=== PATIENT | female | born 1940 | race Caucasian/White ===

== ENCOUNTER → 2016-12-02 | Outpatient (CLI) | payer MEDICARE ==
--- NOTE | 2016-12-03 09:58 | MM ---
Reason for exam: screening (asymptomatic). Last mammogram was performed 1 year ago. History: Patient is postmenopausal. Benign MG stereo VAD BX LT of the left breast, February 04, 2014. Benign excisional biopsy of the left breast. Benign excisional biopsy of the right breast. Took estrogen for 5 years beginning at age 57. Took progesterone for 5 years beginning at age 57. Physical Findings: A clinical breast exam by your physician is recommended on an annual basis and results should be correlated with mammographic findings. MG 3D Screening Mammo W/Cad Bilateral CC and MLO view(s) were taken. Prior study comparison: November 20, 2015, bilateral MG screening mammo w CAD. November 13, 2014, left breast MG diagnostic mammo LT w CAD. There are scattered fibroglandular densities. Previous mammotome biopsy in the left breast. No significant changes when compared with prior studies. ASSESSMENT: Benign, BI-RAD 2 RECOMMENDATION: Routine screening mammogram of both breasts in 1 year.
== END | disposition home or self-care (01) ==
LOC: RADMAMWWP 10:00
PROVIDERS: ATTEND Obstetrics & Gynecology
DX: Z12.31 Encounter for screening mammogram for malignant neoplasm of breast (principal)
CPT/HCPCS: 77063; G0202

== ENCOUNTER → 2017-12-13 | Outpatient (CLI) | payer MEDICARE ==
--- NOTE | 2017-12-14 11:02 | MM ---
Reason for exam: screening (asymptomatic). Last mammogram was performed 1 year ago. History: Patient is postmenopausal. Benign MG stereo VAD BX LT of the left breast, February 04, 2014. Benign excisional biopsy of the left breast. Benign excisional biopsy of the right breast. Took estrogen for 5 years beginning at age 57. Took progesterone for 5 years beginning at age 57. Physical Findings: A clinical breast exam by your physician is recommended on an annual basis and results should be correlated with mammographic findings. MG 3D Screening Mammo W/Cad Bilateral CC and MLO view(s) were taken. Prior study comparison: December 02, 2016, bilateral MG 3d screening mammo w/cad. November 20, 2015, bilateral MG screening mammo w CAD. There are scattered fibroglandular densities. Finding: There are typically benign vascular, round calcifications in both breasts. Previous mammotome biopsy in the left breast. There is no discrete abnormality. ASSESSMENT: Benign, BI-RAD 2 RECOMMENDATION: Routine screening mammogram of both breasts in 1 year.
== END | disposition home or self-care (01) ==
LOC: RADMAMWWP 10:02
PROVIDERS: ATTEND Obstetrics & Gynecology
DX: Z12.31 Encounter for screening mammogram for malignant neoplasm of breast (principal); Z13.820 Encounter for screening for osteoporosis
CPT/HCPCS: 77063; 77067

== ENCOUNTER → 2017-12-29 | Outpatient (CLI) | payer MEDICARE ==
--- NOTE | 2017-12-29 11:09 | BD ---
EXAMINATION TYPE: Axial Bone Density DATE OF EXAM: 12/29/2017 COMPARISON: 2012 CLINICAL HISTORY: screening Height: 5'5 Weight: 169 FRAX RISK QUESTIONS: Alcohol (3 or more units per day): y Family History (Parent hip fracture): y Secondary Osteoporosis: RISK FACTORS HISTORY OF: History of Wrist Fracture: yes unsure which wrist When: unsure Postmenopausal woman: MEDICATIONS: Additional Medications: blood pressure, Additional History: skin cancer 2013 EXAM MEASUREMENTS: Bone mineral densitometry was performed using the [employer] System. Bone mineral density as measured about the Lumbar spine is: ----- L1-L4(G/cm2): 1.300 T Score Values are as follows: ----- L2: -0.6 ----- L3: 1.4 ----- L4: 3.0 ----- L1-L4: 1.0 Bone mineral density has: Decreased -0.4% since study of: 01/25/2003 Bone mineral density about the R hip (g/cm2): 0.950 Bone mineral density about the L hip (g/cm2): 0.950 T Score values are as follows: -----R Neck: -0.6 -----L Neck: -0.6 -----R Total: 0.3 -----L Total: 0.2 Bone mineral density has: Decreased -5.0% since study of: 01/25/2003 IMPRESSION: Normal (Values between +1 and -1 indicate normal bone mass). Consider repeating this study in 5 year s or sooner if there is some new clinical indication. NOTE: T-SCORE=SD OF THE YOUNG ADULT MEAN.
== END | disposition home or self-care (01) ==
LOC: RADBDWWP 09:13
PROVIDERS: ATTEND Obstetrics & Gynecology
DX: Z13.820 Encounter for screening for osteoporosis (principal)
CPT/HCPCS: 77080

== ENCOUNTER → 2018-12-21 | Outpatient (CLI) | payer MEDICARE ==
--- NOTE | 2018-12-26 10:29 | MM ---
Reason for exam: screening (asymptomatic). Last mammogram was performed 1 year ago. History: Patient is postmenopausal. Benign MG stereo VAD BX LT of the left breast, February 04, 2014. Benign excisional biopsy of the left breast. Benign excisional biopsy of the right breast. Took estrogen for 5 years beginning at age 57. Took progesterone for 5 years beginning at age 57. Physical Findings: A clinical breast exam by your physician is recommended on an annual basis and results should be correlated with mammographic findings. MG 3D Screening Mammo W/Cad Bilateral CC and MLO view(s) were taken. Prior study comparison: December 13, 2017, bilateral MG 3d screening mammo w/cad. December 02, 2016, bilateral MG 3d screening mammo w/cad. There are scattered fibroglandular densities. Previous mammotome biopsy in the left breast. No significant changes when compared with prior studies. ASSESSMENT: Benign, BI-RAD 2 RECOMMENDATION: Routine screening mammogram of both breasts in 1 year.
== END | disposition home or self-care (01) ==
LOC: RADMAMWWP 10:17
PROVIDERS: ATTEND Obstetrics & Gynecology
DX: Z12.31 Encounter for screening mammogram for malignant neoplasm of breast (principal)
CPT/HCPCS: 77063; 77067

== ENCOUNTER → 2019-04-24 | Outpatient (CLI) | payer MEDICARE | END | disposition home or self-care (01) | LOC: CPPFTMAIN 08:29 | PROVIDERS: ATTEND Nurse Practitioner Family | DX: R06.02 Shortness of breath (principal) | CPT/HCPCS: 94060; 94726; 94729 ==

== ENCOUNTER → 2019-05-29 | Outpatient (CLI) | payer MEDICARE ==
--- NOTE | 2019-05-30 11:50 | ECHOF ---
Referral Reason:R06.09 Other forms of dyspnea MEASUREMENTS -------- HEIGHT: 165.1 cm WEIGHT: 80.7 kg BP: RVIDd: 3.5 cm (< 3.3) IVSd: 1.1 cm (0.6 - 1.1) LVIDd: 4.2 cm (3.9 - 5.3) LVPWd: 1.4 cm (0.6 - 1.1) IVSs: 1.7 cm LVIDs: 2.8 cm LVPWs: 1.7 cm LAESV Index (A-L): 22.57 ml/m Ao Diam: 3.0 cm (2.0 - 3.7) AV Cusp: 2.5 cm (1.5 - 2.6) LA Diam: 3.9 cm (2.7 - 3.8) MV EXCURSION: 14.919 mm (> 18.000) MV EF SLOPE: 81 mm/s (70 - 150) EPSS: 0.8 cm MV E Cristo: 0.74 m/s MV DecT: 261 ms MV A Cristo: 0.90 m/s MV E/A Ratio: 0.83 RAP: 5.00 mmHg RVSP: 28.63 mmHg FINDINGS -------- Sinus rhythm. This was a technically adequate study. The left ventricular size is normal. There is mild concentric left ventricular hypertrophy. Overa ll left ventricular systolic function is normal with, an EF between 60 - 65 %. The diastolic fillin g pattern is normal for the age of the patient 11.21. The right ventricle is mildly enlarged. Normal LA size by volume 22+/-6 ml/m2. The right atrial size is normal. Interatrial and interventricular septum intact. The aortic valve is trileaflet and appears structurally normal. There is no evidence of aortic regu rgitation. There is no evidence of aortic stenosis. Mild mitral regurgitation is present. Mild tricuspid regurgitation present. There is no evidence of pulmonary hypertension. The right v entricular systolic pressure, as measured by Doppler, is 28.63mmHg. There is no pulmonic regurgitation present. The aortic root size is normal. Normal inferior vena cava with normal inspiratory collapse consistent with estimated right atrial pre ssure of 5 mmHg. Echo free space represents a pericardial fat pad. There is no pericardial effusion. CONCLUSIONS -------- 1. Sinus rhythm. 2. This was a technically adequate study. 3. The left ventricular size is normal. 4. There is mild concentric left ventricular hypertrophy. 5. Overall left ventricular systolic function is normal with, an EF between 60 - 65 %. 6. The diastolic filling pattern is normal for the age of the patient 11.21 7. The right ventricle is mildly enlarged. 8. Normal LA size by volume 22+/-6 ml/m2. 9. The right atrial size is normal. 10. Interatrial and interventricular septum intact. 11. The aortic valve is trileaflet and appears structurally normal. 12. There is no evidence of aortic regurgitation. 13. There is no evidence of aortic stenosis. 14. Mild mitral regurgitation is present. 15. Mild tricuspid regurgitation present. 16. There is no evidence of pulmonary hypertension. 17. The right ventricular systolic pressure, as measured by Doppler, is 28.63mmHg. 18. There is no pulmonic regurgitation present. 19. The aortic root size is normal. 20. Normal inferior vena cava with normal inspiratory collapse consistent with estimated right atrial pressure of 5 mmHg. 21. Echo free space represents a pericardial fat pad. 22. There is no pericardial effusion. CLINICAL PHLEBOTOMIST: Breana Fuentes RDCS
== END | disposition home or self-care (01) ==
LOC: RADECHMAIN 14:52
PROVIDERS: ATTEND Family Medicine
DX: I08.1 Rheumatic disorders of both mitral and tricuspid valves (principal)
CPT/HCPCS: 93306

== ENCOUNTER → 2019-07-11 | Outpatient (CLI) | payer MEDICARE ==
[~2019-07-11] MED LIST: REGADENOSON 0.4 MG/5 ML SYRINGE IV ONE
--- NOTE | 2019-07-11 11:43 | NM ---
EXAMINATION TYPE: NM stress lexiscan cardiolite DATE OF EXAM: 07/11/2019 COMPARISON: NONE HISTORY: Precordial chest pain and abnormal EKG TECHNIQUE: After the intravenous administration of 9.77 mCi Tc 99m Sestamibi - Cardiolite resting SP ECT images acquired 45 minutes post injection. The patient received 0.4mg Lexiscan, 25.2 mCi Tc 99m Sestamibi - Stress images obtained [address] injection FINDINGS: Review of stress and rest SPECT images demonstrates no distinct perfusion abnormality. Gated analysi s shows normal wall motion with an estimated left ventricular ejection fraction of 71 %. IMPRESSION: No scintigraphic evidence for reversible ischemia.
--- NOTE | 2019-07-11 12:37 | EST ---
EXERCISE STRESS DATE OF SERVICE: 07/11/2019 AGE: 79 SEX: Female HT: 65" WT: 177 pounds PROTOCOL: Lexiscan Cardiolite STAGE: DURATION OF EXERCISE: HEART RATE REST: 82 BLOOD PRESSURE REST: 130/73 MAXIMUM HEART RATE ACHIEVED: 100 MAXIMUM BLOOD PRESSURE: 131/67 85% MPHR: 100% MPHR: METS: INDICATIONS: Chest pain. CLINICAL INFORMATION: STRESS DATA: Heart rate 82, pressure is 130/73 mmHg. Baseline EKG showed sinus rhythm. The patient was given 0.4 mg of Lexiscan over 15 seconds per protocol. Max heart rate was 100 beats per minute. Maximum pressure was 131/67 mmHg. Clinically, the patient did not have any symptoms of chest pain or chest discomfort and the EKG did not show any significant ST or T-wave abnormalities concerning for ischemia. CONCLUSION: 1. Nondiagnostic electrocardiogram stress testing in response to Lexiscan. 2. Please follow up on the Cardiolite portion on separate report from Radiology Department. MMODL / IJN: [id number] /
== END | disposition home or self-care (01) ==
LOC: RADNMMAIN 08:35
PROVIDERS: ATTEND Family Medicine
DX: R06.09 Other forms of dyspnea (principal)
CPT/HCPCS: 93017; 78452; A9500; J2785

== ENCOUNTER → 2019-12-18 | Outpatient (CLI) | payer MEDICARE | END | disposition home or self-care (01) | LOC: LABWHC1 11:15 | PROVIDERS: ATTEND Internal Medicine Gastroenterology | DX: Z11.59 Encounter for screening for other viral diseases (principal) | CPT/HCPCS: 87635 ==

== ENCOUNTER 2019-12-21 09:35 | Day surgery (SDC) | payer MEDICARE ==
[2019-12-20 08:44] VITALS: BMI 28.6
[~2019-12-21 09:35] MED LIST changes: +LACTATED RINGERS 1,000 ML IV SCH; +LIDOCAINE 1% (10MG/ML) FOR IV START INTRADERMA PRN; -REGADENOSON 0.4 MG/5 ML SYRINGE IV ONE
[2019-12-21] MEDS ORDERED: LACTATED RINGERS 1,000 ML IV ONE (09:53)
[2019-12-21 10:11] VITALS: RESP 18; TEMP 97.8
[2019-12-21] MEDS ORDERED: PROPOFOL 10 MG/ML 20 ML VIAL IV ONE (11:35)
--- NOTE | 2019-12-21 11:57 | P.PCN ---
Date of Procedure: 12/21/19 Procedure(s) Performed: BRIEF HISTORY: Patient is a 79-year-old pleasant white female with long-standing history of ulcerative colitis diagnosed in 1989 he scheduled for a surveillance colonoscopy today . Her last colonoscopy was 4 years ago. She remains in clinical remission. PROCEDURE PERFORMED: Colonoscopy With random biopsies PREOPERATIVE DIAGNOSIS long-standing history of ulcerative colitis. IV sedation per Anesthesia. PROCEDURE: After informed consent was obtained, the patient, was brought into the endoscopy unit. IV sedation was administered by Anesthesia under continuous monitoring. Digital rectal examination was normal. Initially the Olympus CF-160 flexible video colonoscope was then inserted in the rectum, gradually advanced into the cecum without any difficulty. Careful examination was performed as the scope was gradually being withdrawn. Ileocecal valve and the appendiceal orifice were visualized and appeared normal. Prep was excellent. Mucosa of the cecum, ascending colon, transverse colon, descending colon, sigmoid colon, and rectum appeared normal. Retroflexion was performed in the rectum and no lesions were seen. Random biopsies were done at every 10 cm to rule out dysplasia. Scattered left-sided diverticulosis seen. The patient tolerated the procedure well. IMPRESSION: Normal-appearing colon from rectum to cecum with no evidence of active colitis or colorectal neoplasia. Scattered left-sided diverticulosis. RECOMMENDATIONS: Findings of this examination were discussed with the patient as well as a family. She was advised to follow with the biopsy results. If the biopsy does not show any evidence of residual can have a repeat colonoscopy in 2-3 years.
[2019-12-21 12:15] VITALS: BP 127/58; PULSE 72
== END 2019-12-21 12:59 | disposition home or self-care (01) ==
LOC: ORWHC2ENDO 09:35
PROVIDERS: ATTEND Internal Medicine Gastroenterology
DX: Z12.11 Encounter for screening for malignant neoplasm of colon (principal); K52.9 Noninfective gastroenteritis and colitis, unspecified; K57.30 Diverticulosis of large intestine without perforation or abscess without bleeding; I10 Essential (primary) hypertension; Z88.0 Allergy status to penicillin; Z88.2 Allergy status to sulfonamides; Z87.19 Personal history of other diseases of the digestive system; Z79.82 Long term (current) use of aspirin; Z79.899 Other long term (current) drug therapy
CPT/HCPCS: 88305; 45380; J2704

== ENCOUNTER → 2020-02-05 | Outpatient (CLI) | payer MEDICARE ==
--- NOTE | 2020-02-05 11:17 | XR ---
EXAMINATION TYPE: XR chest 2V DATE OF EXAM: 02/05/2020 COMPARISON: 07/20/2012 HISTORY: 79-year-old female cough and shortness of breath TECHNIQUE: Frontal and lateral views FINDINGS: Heart normal size. Aorta and pulmonary vasculature within normal limits. Some mild patchy density at the cardiac apex/left base. Otherwise, no consolidation or pleural effusion. IMPRESSION: Some mild patchy density at the left base probable atelectasis. Correlate with patient's symptoms to exclude an early infiltrate. Follow-up can be considered.
[2020-02-05 11:36] LABS: HCT 38.8 % (34.0-46.0); HGB 12.7 gm/dL (11.4-16.0); MCH 31.4 pg (25.0-35.0); MCHC 32.7 g/dL (31.0-37.0); Mean Platelet Volume 8.7; Platelet Count 219 k/uL (150-450); RBC 4.05 m/uL (3.80-5.40); WBC 7.9 k/uL (3.8-10.6)
[2020-02-05 11:51] LABS: ALT 11 U/L (4-34); AST 20 U/L (14-36); African American GFR (CKD) >90 (>60 ml/min/1.73 sqM); Albumin 4.4 g/dL (3.5-5.0); Albumin/Globulin Ratio 1.7; Alkaline Phosphatase 72 U/L (38-126); Anion Gap 6 mmol/L; Blood Urea Nitrogen 15 mg/dL (7-17); C Reactive Protein 8.1 mg/L (<10.0); Calcium 11.2 mg/dL (8.4-10.2); Carbon Dioxide 29 mmol/L (22-30); Chloride 102 mmol/L (98-107); Globulin 2.6 g/dL; Glucose 109 mg/dL (74-99); LDH 355 U/L (313-618); Non-African American GFR(CKD) 83 (>60 ml/min/1.73 sqM); Potassium 3.7 mmol/L (3.5-5.1); Sodium 137 mmol/L (137-145)
[2020-02-05 20:15] LABS: Ferritin 139.9 ng/mL (10.0-291.0)
== END | disposition home or self-care (01) ==
LOC: LABWHC1 10:39
PROVIDERS: ATTEND Family Medicine
DX: J98.4 Other disorders of lung (principal); R06.02 Shortness of breath; R05 Cough
CPT/HCPCS: 85379; 80053; 82728; 83615; 85027; 86140; 71046; 36415; U0003

== ENCOUNTER → 2020-03-14 | Outpatient (CLI) | payer MEDICARE ==
--- NOTE | 2020-03-14 11:36 | MM ---
Reason for exam: additional evaluation requested from abnormal screening. Last mammogram was performed 1 month ago. History: Patient is postmenopausal and history of other cancer. Benign MG stereo VAD BX LT of the left breast, February 04, 2014. Benign excisional biopsy of the left breast. Benign excisional biopsy of the right breast. Took estrogen for 5 years beginning at age 57. Took progesterone for 5 years beginning at age 57. Physical Findings: Nurse did not find any significant physical abnormalities on exam. MG 3D Work Up W/Cad LT Spot compression CC, spot compression MLO, and LM view(s) were taken of the left breast. Prior study comparison: February 26, 2020, bilateral MG 3d screening mammo w/cad. December 21, 2018, bilateral MG 3d screening mammo w/cad. There are scattered fibroglandular densities. On additional views, the upper outer quadrant vague focal asymmetry becomes less defined. The appearance may be similar to 2016. 6 month follow up recommended. These results were verbally communicated with the patient and result sheet given to the patient on 03/14/20. ASSESSMENT: Probably benign, BI-RAD 3 RECOMMENDATION: Follow-up diagnostic mammogram of the left breast in 6 months.
== END | disposition home or self-care (01) ==
LOC: RADMAMWWP 10:15
PROVIDERS: ATTEND Obstetrics & Gynecology
DX: R92.8 Other abnormal and inconclusive findings on diagnostic imaging of breast (principal)
CPT/HCPCS: 77065; G0279; 77061

== ENCOUNTER → 2020-09-18 | Outpatient (CLI) | payer MEDICARE ==
--- NOTE | 2020-09-19 09:31 | MM ---
Reason for exam: follow-up at short interval from prior study. Last mammogram was performed 6 months ago. History: Patient is postmenopausal and history of other cancer. Benign MG stereo VAD BX LT of the left breast, February 04, 2014. Benign excisional biopsy of the left breast. Benign excisional biopsy of the right breast. Took estrogen for 5 years beginning at age 57. Took progesterone for 5 years beginning at age 57. Physical Findings: Nurse did not find any significant physical abnormalities on exam. MG 3D Diag Mammo W/Cad LT CC and MLO view(s) were taken of the left breast. Prior study comparison: March 14, 2020, left breast MG 3d work up w/cad LT. February 26, 2020, bilateral MG 3d screening mammo w/cad. There are scattered fibroglandular densities. Previous mammotome biopsy in the left breast. Superior left MLO asymmetric density stable for 6 months. Additional follow up recommended. These results were verbally communicated with the patient and result sheet given to the patient on 09/18/20. ASSESSMENT: Probably benign, BI-RAD 3 RECOMMENDATION: Follow-up diagnostic mammogram of both breasts in 5 months. Back on schedule for January 2021.
== END | disposition home or self-care (01) ==
LOC: RADMAMWWP 14:18
PROVIDERS: ATTEND Family Medicine
DX: R92.8 Other abnormal and inconclusive findings on diagnostic imaging of breast (principal)
CPT/HCPCS: 77065; G0279; 77061

== ENCOUNTER → 2021-03-10 | Outpatient (CLI) | payer MEDICARE ==
--- NOTE | 2021-03-11 10:32 | MM ---
Reason for exam: additional evaluation requested from prior study. Last mammogram was performed 6 months ago. History: Patient is postmenopausal and history of other cancer. Benign MG stereo VAD BX LT of the left breast, February 04, 2014. Benign excisional biopsy of the left breast. Benign excisional biopsy of the right breast. Took estrogen for 5 years beginning at age 57. Took progesterone for 5 years beginning at age 57. Physical Findings: Nurse did not find any significant physical abnormalities on exam. MG 3D Diag Mammo W/Cad ANNALISA Bilateral CC and MLO view(s) were taken. XCCL view(s) were taken of the left breast. Prior study comparison: September 18, 2020, left breast MG 3d diag mammo w/cad LT. March 14, 2020, left breast MG 3d work up w/cad LT. There are scattered fibroglandular densities. Benign appearing bilateral calcifications. Previous mammotome biopsy in the left breast. No significant new findings when compared with previous films. These results were verbally communicated with the patient and result sheet given to the patient on 03/10/21. ASSESSMENT: Benign, BI-RAD 2 RECOMMENDATION: Routine screening mammogram of both breasts in 1 year.
== END | disposition home or self-care (01) ==
LOC: RADMAMWWP 10:53
PROVIDERS: ATTEND Family Medicine
DX: R92.1 Mammographic calcification found on diagnostic imaging of breast (principal); Z78.0 Asymptomatic menopausal state; Z85.9 Personal history of malignant neoplasm, unspecified; Z79.818 Long term (current) use of other agents affecting estrogen receptors and estrogen levels
CPT/HCPCS: 77066; G0279; 77062

== ENCOUNTER 2021-07-11 11:46 | Emergency (ER) | payer MEDICARE ==
[2021-07-11 12:02] VITALS: RESP 18; TEMP 97.7
--- NOTE | 2021-07-11 13:06 | ED ---
General Adult HPI - General Chief complaint: Shortness of Breath Stated complaint: chest congestion Time Seen by Provider: 07/11/21 12:15 Source: patient, family, RN notes reviewed, old records reviewed Mode of arrival: ambulatory Limitations: no limitations - History of Present Illness Initial comments: Patient is a 81-year-old female who presents emergency department over concern for upper respiratory symptoms for the last approximately. She does have a history of asthma. Chest has a history of hypertension. Was diagnosed with asthma exacerbation possible bronchitis last week and has been taking steroids as well as an antibiotic. However she did not take the Z-Juan and prednisone initially as prescribed, and presented to urgent care on which was 2 days ago. She was prescribed prednisone 50 mg daily which she has been taking since then. She has also been taking doxycycline twice a day 100 mg which she has been taking since then. Patient states that overall she is feeling somewhat improved at this time, however is still complaining of some upper respiratory symptoms including mild wheezing on exertion, coughing, rhinorrhea. They recommended from urgent care to come to the emergency department on for chest x-ray which is why she presents today for further evaluation. COVID-19 antigen test was negative on , however [facility] has not yet returned. She was fully vaccinated for COVID-19. She otherwise has no acute complaints at this time. She denies any chest pain, fevers, chills, loss of appetite/taste. Denies any nausea, vomiting, diarrhea. - Related Data Home Medications Medication Instructions Recorded Confirmed Albuterol Sulfate [Proair Hfa] 1 - 2 puff INHALATION DAILY PRN 12/20/19 12/20/19 Aspirin [Adult Low Dose Aspirin EC] 81 mg PO Q48H 12/20/19 12/20/19 Diltiazem HCl [Cardizem CD] 240 mg PO QAM 12/20/19 12/20/19 Lisinopril [Zestril] 10 mg PO DAILY 12/20/19 12/20/19 Multivitamins, Thera [Multivitamin 1 tab PO DAILY 12/20/19 12/20/19 (formulary)] Potassium Chloride [Klor-Con 20] 20 meq PO DAILY 12/20/19 12/20/19 hydroCHLOROthiazide 25 mg PO DAILY 12/20/19 12/20/19 Allergies Allergy/AdvReac Type Severity Reaction Status Date / Time Penicillins Allergy Swelling Verified 07/11/21 12:02 Sulfa (Sulfonamide Allergy Itching Verified 07/11/21 12:02 Antibiotics) Review of Systems ROS Statement: Those systems with pertinent positive or pertinent negative responses have been documented in the HPI. Review of Systems: CONST: Denies fever EYES: Denies blurry vision ENT: Endorses nasal congestion C/V: Denies Chest pain RESP: Endorses cough, wheezing GI: Denies abdominal pain : Denies dysuria SKIN: Denies rash. MSK: Denies joint pain. NEURO: Denies headache ROS Other: All systems not noted in ROS Statement are negative. Past Medical History Past Medical History: Asthma, Hypertension History of Any Multi-Drug Resistant Organisms: None Reported Additional Past Surgical History / Comment(s): breast biopsy Past Psychological History: No Psychological Hx Reported Smoking Status: Former smoker Past Alcohol Use History: Occasional Past Drug Use History: None Reported General Exam - General Exam Comments Initial Comments: General: Appears in no acute distress. HEAD: Normal with no signs of head trauma. EYES: PERRLA, EOMI, conjunctiva normal, no discharge. ENT: Hearing grossly intact, normal oropharynx. Active rhinorrhea. RESPIRATORY: Clear breath sounds bilaterally. No wheezes, rales, or rhonchi. Not hypoxic. No increased work of breathing. C/V: Regular rate and rhythm. S1 and S2 auscultated, no edema, peripheral pulses 2+ and intact throughout ABD: Abd is soft, nontender, nondistended EXT: Normal range of motion, no obvious deformity SKIN: No rashes or lesions observed on exposed skin. NEURO: Alert and oriented 4. No focal deficits. Limitations: no limitations Course Vital Signs 07/11/21 07/11/21 11:55 13:59 Temperature 97.7 F Pulse Rate 90 88 Respiratory 18 18 Rate Blood Pressure 135/67 128/66 O2 Sat by Pulse 95 95 Oximetry Medical Decision Making - Medical Decision Making Based on the patient's presentation and physical exam, she is likely expressing upper respiratory illness, probable bronchitis. Cannot rule out a possibility COVID-19 infection during the pandemic currently. Also cannot rule out pneumonia. She is requesting chest x-ray which we will obtain as well as a Covid PCR rapid swab. She was in agreement with this plan. She is already taking 50 millions of prednisone daily as well as doxycycline for pneumonia/bronchitis. I do not believe that she presents further medications at this time. She does have her albuterol inhaler at bedside which I commended that she use if she has shortness of breath. She was in agreement this plan. Patient otherwise is resting comfortably, with a normal exam, no obvious signs of asthma, wheezing or distress. I do not believe that further laboratory studies or imaging are required at this time. She is already on outpatient management for her likely diagnosis. Patient is Covid negative. Chest x-ray reveals findings concerning for possible left upper lobe pneumonia but is indeterminate. Repeat x-rays recommended. I updated the patient. Discussed with the patient on the results for labs and imaging. I do believe it is safe for her to be discharged home at this time. She is already on prednisone, already on doxycycline, and already has albuterol inhalers and breathing treatments at home. She is overall improving. She was in agreement this plan. I advised that she completed all of her medications to completion. She was in agreement this plan. I instructed the patient to follow up with their PCP in the next 3 days. I explained that the patient should return to the emergency department if they experience any worsening symptoms. Strict return precautions were discussed with the patient. The patient expressed understanding of these instructions. I answered all questions that the patient had. The patient was discharged home in good condition with their prescriptions and follow up information. - Lab Data Lab Results 07/11/21 Range/Units 12:52 Coronavirus (PCR) Not Detected (Not Detectd) Disposition Clinical Impression: Bronchitis, Asthma Disposition: HOME SELF-CARE Condition: Good Instructions (If sedation given, give patient instructions): Asthma (ED), Acute Bronchitis (ED) Is patient prescribed a controlled substance at d/c from ED?: No Referrals: Maddy Matta NPC [Primary Care Provider] - 1-2 days
--- NOTE | 2021-07-11 13:22 | XR ---
EXAMINATION TYPE: XR chest 2V DATE OF EXAM: 07/11/2021 COMPARISON: Chest x-ray 02/05/2020 HISTORY: Cough TECHNIQUE: Frontal and lateral views of the chest are obtained. FINDINGS: Some questionable nodularity present in the left upper lobe. There is no focal air space op acity, pleural effusion, or pneumothorax seen. The cardiac silhouette size is within normal limits. Prominent lung volumes suggest underlying COPD, there is flattening hemidiaphragms, hyperinflation. A jenny is dense. The osseous structures are intact. IMPRESSION: Question some nodularity left upper lobe, indeterminate, early airspace disease is possi ble, consider short interval follow-up.
[2021-07-11 13:59] VITALS: BP 128/66; PULSE 88
== END 2021-07-11 14:38 | disposition home or self-care (01) ==
LOC: EC 11:46
DX: J45.909 Unspecified asthma, uncomplicated (principal); Z20.822 Contact with and (suspected) exposure to COVID-19; I10 Essential (primary) hypertension; Z87.891 Personal history of nicotine dependence; Z79.82 Long term (current) use of aspirin; Z79.51 Long term (current) use of inhaled steroids; Z79.899 Other long term (current) drug therapy
CPT/HCPCS: 71046; 87635; 99285

== ENCOUNTER → 2022-04-12 | Outpatient (CLI) | payer MEDICARE ==
--- NOTE | 2022-04-12 14:13 | US ---
EXAMINATION TYPE: US venous doppler duplex LE DATE OF EXAM: 04/12/2022 2:02 PM COMPARISON: NONE CLINICAL HISTORY: M79.89 LOCALIZED SWELLING, MASS AND LUMP, HEAD. Patient states bumping left araujo an d it got infected. On baby aspirin. SIDE PERFORMED: Bilateral TECHNIQUE: The lower extremity deep venous system is examined utilizing real time linear array sonog chema with graded compression, doppler sonography and color-flow sonography. VESSELS IMAGED: Common Femoral Vein Deep Femoral Vein Greater Saphenous Vein * Femoral Vein Popliteal Vein Small Saphenous Vein * Proximal Calf Veins (* superficial vessels) Grayscale, color doppler, spectral doppler imaging performed of the deep veins of the lower extremiti es. There is normal flow, compressibility, vascular waveforms. Right Leg: Negative for DVT Left Leg: Negative for DVT IMPRESSION: No deep venous thrombosis of either lower extremity.
== END | disposition home or self-care (01) ==
LOC: RADUSWWP 13:34
PROVIDERS: ATTEND Internal Medicine
DX: R22.0 Localized swelling, mass and lump, head (principal)
CPT/HCPCS: 93970

== ENCOUNTER → 2023-08-30 | Outpatient (CLI) | payer MEDICARE ==
--- NOTE | 2023-08-30 14:04 | XR ---
EXAMINATION TYPE: XR chest 2V DATE OF EXAM: 08/30/2023 COMPARISON: 07/11/2021 INDICATION: Short of breath TECHNIQUE: Frontal and lateral views of the chest are obtained. FINDINGS: The heart size is normal. The pulmonary vasculature is normal. Minimal infiltrate may be low in the left diaphragm with subtle silhouetting. Correlate for atelectas is. Lungs otherwise appear clear.. IMPRESSION: 1. MA left basilar atelectasis. Lungs otherwise appear clear.
== END | disposition home or self-care (01) ==
LOC: RADXRMAIN 13:39
PROVIDERS: ATTEND Internal Medicine
DX: J98.11 Atelectasis (principal)
CPT/HCPCS: 71046

== ENCOUNTER → 2023-10-26 | Outpatient (CLI) | payer MEDICARE ==
--- NOTE | 2023-10-26 11:03 | US ---
EXAMINATION TYPE: US venous doppler duplex UE LT DATE OF EXAM: 10/26/2023 COMPARISON: NONE CLINICAL INDICATION: Female, 83 years old with history of R22.32 LOCALIZED SWELLING, MASS AND LUMP, L EFT UPP; Localized swelling and bruising of left arm SIDE PERFORMED: Left *Limited due to swelling Left Arm: Negative for DVT. There is a 4.5 x 2.0 x 1.9cm complex area seen upper left arm. IMPRESSION: Grayscale, color doppler, spectral doppler imaging performed of the deep veins of the upper extremiti es. There is normal flow, compressibility and vascular waveforms. Negative for DVT. There is a 4.5 x 2.0 x 1.9cm complex area seen upper left arm which may reflect a hematoma.
== END | disposition home or self-care (01) ==
LOC: RADUSWWP 09:38
PROVIDERS: ATTEND Family Medicine
DX: R22.32 Localized swelling, mass and lump, left upper limb (principal)

== ENCOUNTER → 2024-02-29 | Outpatient (CLI) | payer MEDICARE ==
[2024-02-29 10:15] LABS: ABG Base Excess -5.4 mmol/L; ABG HCO3 19 mmol/L (21-25); ABG PCO2 31 mmHg (35-45); ABG PH 7.39 (7.35-7.45); ABG PO2 79 mmHg (83-108); ABG TCO2 20 mmol/L (19-24); Allen Test Performed? Yes
== END | disposition home or self-care (01) ==
LOC: LABWHC1 09:50
PROVIDERS: ATTEND Internal Medicine Critical Care Medicine
DX: R06.02 Shortness of breath (principal)
CPT/HCPCS: 36600; 82805

== ENCOUNTER → 2024-05-16 | Outpatient (CLI) | payer MEDICARE ==
--- NOTE | 2024-05-16 10:34 | US ---
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 No DVT or SVT is noted . Common Femoral Vein Deep Femoral Vein Femoral Vein Popliteal Vein Proximal Calf Veins Greater Saph Vein Upper Small Saph Vein 2) There is venous reflux noted at the following venous levels: none IMPRESSION: 1. No ultrasound evidence for deep venous thrombosis of the bilateral lower extremities. 2. No venous insufficiency of the bilateral lower extremities identified. [facility], , 05/16/2024 10:31 AM
--- NOTE | 2024-05-16 10:43 | US ---
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 Monophasic within the dorsalis p rakan and digit. Left: Biphasic waveforms within the femoral and popliteal arteries. Monophasic within the dorsalis pe dis and digit. Right Brachial Pressure: 153 Left Brachial Pressure: 137 Ankle-Brachial Indices: Right: 1.08 Left: 1.09 (Vessel hardening > 1.4; Normal 0.9 - 1.4, Moderate 0.7 - 0.9, Severe 0.5-0.7) Toe Brachial Indices: Right: 0.93 Left: 1.02 IMPRESSION: Normal ankle brachial indices bilaterally. Monophasic waveforms within the distal bilate ral lower extremity arteries suggesting mild peripheral arterial vascular disease. [facility], , 05/16/2024 10:40 AM
== END | disposition home or self-care (01) ==
LOC: RADUSWWP 08:33
PROVIDERS: ATTEND Thoracic Surgery (Cardiothoracic Vascular Surgery)
CPT/HCPCS: 93923; 93970

== ENCOUNTER → 2024-06-01 | Outpatient (CLI) | payer MEDICARE ==
--- NOTE | 2024-06-01 13:03 | XR ---
Thoracic spine. HISTORY: Back pain. COMPARISON: Chest dated 08/30/2023 TECHNIQUE: 3 views of the thoracic spine were obtained. FINDINGS: There is a moderate to severe compression fracture of T6 and a moderate compression fracture of T8. T hey were not present on the prior chest radiograph dated 08/30/2013 are therefore either acute or suba cute. The disc spaces are well maintained. The paraspinal soft tissues are unremarkable. IMPRESSION: Acute to subacute compression fractures of T6 and T8 as described above. [facility], , 06/01/2024 1:01 PM
--- NOTE | 2024-06-01 13:05 | XR ---
Lumbar spine HISTORY: Back pain COMPARISON: None. TECHNIQUE: 3 views lumbar spine were obtained. FINDINGS:. The lumbar vertebral segments are normal in height and alignment. No fracture or subluxation. The L1-2, L2-3 and L3-4 disks are fairly well maintained in height. There is moderate to marked disc space narrowing at the L4-5 and L5-S1 levels consistent with moderate to marked degenerative disc dis ease. There is marked sclerosis of the SI joints throughout the lumbar spine greatest at the L4-5 and L5-S1 levels. IMPRESSION: 1. No lumbar spine fracture or malalignment. 2. 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 3. diffuse facet arthropathy greatest at the L4-5 and L5-S1 levels. [facility], , 06/01/2024 1:03 PM
--- NOTE | 2024-06-01 13:08 | XR ---
EXAMINATION TYPE: XR chest 2V DATE OF EXAM: 06/01/2024 COMPARISON: 08/30/2023 HISTORY: Shortness of breath TECHNIQUE: Frontal and lateral views of the chest are obtained. FINDINGS: There is no focal air space opacity, pleural effusion, or pneumothorax seen. The There is a small left pleural effusion and there is a small focal infiltrate likely in the retrocardi ac region. The findings suggest the presence of pneumonia. There is no pneumothorax. There are compression fractures of the C6 and T8 which are not present on the prior study. The pulmonary vasculature is not congested. IMPRESSION: 1. Probable small retrocardiac infiltrate and small left pleural effusion. The findings suggest prese nce of pneumonia and short-term follow-up is recommended. 2. Compression fractures of T6 and T8, severe at T6 and moderate T8. [facility], , 06/01/2024 1:05 PM
== END | disposition home or self-care (01) ==
LOC: LABWHC1 10:54
PROVIDERS: ATTEND Family Medicine
DX: M48.54XA Collapsed vertebra, not elsewhere classified, thoracic region, initial encounter for fracture (principal); M47.816 Spondylosis without myelopathy or radiculopathy, lumbar region; M47.817 Spondylosis without myelopathy or radiculopathy, lumbosacral region; M51.369 Other intervertebral disc degeneration, lumbar region without mention of lumbar back pain or lower extremity pain; M51.379 Other intervertebral disc degeneration, lumbosacral region without mention of lumbar back pain or lower extremity pain
CPT/HCPCS: 71046; 72070; 72100

== ENCOUNTER → 2024-06-15 | Outpatient (CLI) | payer MEDICARE ==
--- NOTE | 2024-06-15 12:39 | XR ---
2 view chest. HISTORY: Abnormal lung finding. COMPARISON: 06/01/2024 TECHNIQUE: PA and lateral views of chest are obtained. On the current study there is no definite retrocardiac infiltrate but there is persistent small left effusion. The heart size is normal in the pulmonary vasculature is not congested. The right lung is clear. There is no pneumothorax. There are multiple table compression fractures and the thoracic spine. IMPRESSION: 1. Persistent small left effusion but no definite left lower lobe infiltrate. 2. Multiple stable compression fractures of the thoracic spine. [facility], , 06/15/2024 12:36 PM
== END | disposition home or self-care (01) ==
LOC: RADXRMAIN 12:14
PROVIDERS: ATTEND Family Medicine
DX: M48.54XA Collapsed vertebra, not elsewhere classified, thoracic region, initial encounter for fracture (principal); R91.8 Other nonspecific abnormal finding of lung field
CPT/HCPCS: 71046

== ENCOUNTER → 2024-07-12 | Outpatient (CLI) | payer MEDICARE ==
[2024-07-12 15:28] LABS: Protein, Total 6.4 g/dL (6.2-8.2)
[2024-07-12 15:37] LABS: Immunoglobulin M 82.3 mg/dL (40.0-280.0)
[2024-07-12 15:48] LABS: % Iron Saturation 5.34 (12.00-45.00); BUN/Creat Ratio 24.14 Ratio (12.00-20.00); Blood Urea Nitrogen 16.9 mg/dL (9.0-27.0); Glucose 89 mg/dL (70-110); Iron 21 UG/DL (50-170); LDH 201 U/L (120-246); Total Iron Binding Capacity 393 UG/DL (228-460)
[2024-07-12 15:49] LABS: ALT 6 U/L (8-44); AST 15 U/L (13-35); Albumin/Globulin Ratio 1.74 Ratio (1.60-3.17); Alkaline Phosphatase 93 U/L (41-126); Calcium 10.7 mg/dL (8.7-10.3); Carbon Dioxide 24.4 mmol/L (21.6-31.8); Chloride 104 mmol/L (96-109); Ferritin 43.7 ng/mL (10.0-291.0); Globulin 2.3 g/dL (1.6-3.3); Potassium 4.4 mmol/L (3.5-5.5); Sodium 140 mmol/L (135-145); T4, Free (Free Thyroxine) 1.31 ng/dL (0.80-1.80); Total Bilirubin 0.6 mg/dL (0.3-1.2); Total Protein 6.3 g/dL (6.2-8.2)
[2024-07-12 17:12] LABS: Basophils # (A) 0.02 X 10*3/uL (0.00-0.10); Basophils % (A) 0.4 %; Eosinophils # (A) 0.05 X 10*3/uL (0.04-0.35); Eosinophils % (A) 0.9 %; HCT 26.8 % (37.2-46.3); HGB 8.1 g/dL (12.0-15.0); Lymphocytes # (A) 0.78 X 10*3/uL (0.90-5.00); Lymphocytes % (A) 14.5 %; MCH 26.8 pg (27.0-32.0); MCHC 30.2 g/dL (32.0-37.0); MCV 88.7 FL (80.0-97.0); Mean Platelet Volume 12.6 FL (9.5-12.2); Monocytes # (A) 0.62 X 10*3/uL (0.20-1.00); Monocytes % (A) 11.5 %; NRBC Per 100 WBC 0 X 10*3/uL (0.00-0.01); Neutrophils # (A) 3.91 X 10*3/uL (1.80-7.70); Neutrophils % (A) 72.5 %; Platelet Count 308 X 10*3/uL (140-440); RBC 3.02 X 10*6/uL (4.10-5.20); RDW 15.5 % (11.5-14.5); WBC 5.39 X 10*3/uL (4.50-10.00)
[2024-07-12 18:09] LABS: Reticulocyte % 1.85 % (0.10-1.80)
[2024-07-13 12:30] LABS: Free Kappa Lt Chain Qnt, Serum 2.63 mg/dL (0.33-1.94); Free Lambda Lt Chain Qnt, Seru 2.52 mg/dL (0.57-2.63)
== END | disposition home or self-care (01) ==
LOC: LABWHC1 10:37
PROVIDERS: ATTEND Internal Medicine
DX: I48.91 Unspecified atrial fibrillation (principal); I10 Essential (primary) hypertension; D64.9 Anemia, unspecified; K50.10 Crohn's disease of large intestine without complications; E07.9 Disorder of thyroid, unspecified
CPT/HCPCS: 36415; 80053; 82607; 82668; 82728; 82746; 82784; 83010; 83540; 83550; 83615; 83883; 83921; 84165; 84439; 84443; 84481; 85025; 85045

== ENCOUNTER → 2024-07-19 | Outpatient (CLI) | payer MEDICARE ==
[2024-07-19 13:00] LABS: African American GFR (CKD) >90 (>60 ml/min/1.73 sqM); Blood Urea Nitrogen 20 mg/dL (7-17); Non-African American GFR(CKD) 82 (>60 ml/min/1.73 sqM)
--- NOTE | 2024-07-19 14:26 | CT ---
EXAMINATION TYPE: CT abdomen pelvis w con CT DLP: 374.8 mGycm, Automated exposure control for dose reduction was used. DATE OF EXAM: 07/19/2024 2:16 PM COMPARISON: None CLINICAL INDICATION:Female, 84 years old with history of R63.4 ABNORMAL WEIGHT LOSS; weight loss TECHNIQUE: Standard CT of the abdomen and pelvis following the administration of 100 cc of Isovue 3 00 IV contrast material and oral contrast. Coronal and sagittal reformats were performed. FINDINGS: LOWER CHEST: Visualized lung bases are clear. Mild cardiomegaly. ABDOMEN LIVER: Unremarkable GALLBLADDER AND BILE DUCTS: Unremarkable. PANCREAS: Unremarkable. SPLEEN: Unremarkable. ADRENAL GLANDS: Unremarkable. KIDNEYS AND URETERS: No evidence of hydronephrosis or renal calculus. The kidneys enhance symmetrical ly. Left renal 1.4 cm cyst. Additional bilateral renal subcentimeter hypodense foci which are too sma ll to characterize but likely represent cysts. Contrast is demonstrated within both collecting system s on the delayed phase. PELVIS BLADDER: Incompletely distended but grossly unremarkable. REPRODUCTIVE: Unremarkable. ABDOMEN & PELVIS STOMACH AND BOWEL: Stomach and duodenum are unremarkable. Enteric contrast reaches the descending col on. Distal colonic diverticulosis without evidence for acute diverticulitis. No definitive focal denis l wall thickening. No surrounding inflammatory changes. No evidence of bowel obstruction. PERITONEUM: No evidence of pneumoperitoneum or free fluid. VASCULATURE: Mild atherosclerotic calcifications are present throughout the abdominal aorta and its b ranches. No evidence of aortic aneurysm. MUSCULOSKELETAL: No acute osseous abnormalities. Mild disc degeneration changes are present throughou t the thoracolumbar spine. LYMPH NODES: No evidence for lymphadenopathy. SOFT TISSUE/ABDOMINAL WALL: Unremarkable IMPRESSION: 1. No CT evidence for acute abdominal/pelvic process. No CT evidence for definitive malignancy. 2. Colonic diverticulosis without evidence for acute diverticulitis. [facility], , 07/19/2024 2:24 PM
== END | disposition home or self-care (01) ==
LOC: RADCTMAIN 12:08
PROVIDERS: ATTEND Internal Medicine
DX: K57.30 Diverticulosis of large intestine without perforation or abscess without bleeding (principal); R63.4 Abnormal weight loss; D64.9 Anemia, unspecified; I48.91 Unspecified atrial fibrillation; I10 Essential (primary) hypertension; K50.10 Crohn's disease of large intestine without complications; E07.9 Disorder of thyroid, unspecified
CPT/HCPCS: 82565; 84520; 74177; Q9967